=== PATIENT | male | born 2000 | race Caucasian/White ===

== ENCOUNTER 2020-08-08 18:47 | Emergency (ER) | payer OTHER ==
[~2020-08-08] VITALS: Wt 67.1 kg
[2020-08-08 20:38] LABS: BILIRUBIN Negative (Negative); BLOOD Negative (Negative); CLARITY Clear (Clear); COLOR Yellow (Yellow); GLUCOSE Negative (Negative); KETONE Negative (Negative); LEUKO ESTERASE Trace (Negative); NITRITE Negative (Negative); PH 5.5 (4.5-8.0); SPECIFIC GRAVITY 1.015 (1.001-1.030); UROBILINOGEN 0.2 E.U./dl (0.0-1.0)
[2020-08-08 21:21] LABS: EPITHELIAL CELLS 0-2; RBC 0-2 rbc/hpf (0-2); WBC 16-20 wbc/hpf (0-5)
[2020-08-08] MEDS ORDERED: DOXYCYCLINE100 M3 PO (21:32)
== END 2020-08-08 21:39 | disposition home or self-care (01) ==
LOC: ED 18:47
PROVIDERS: Nurse Practitioner
DX: Z20.2 Contact with and (suspected) exposure to infections with a predominantly sexual mode of transmission (principal)

== ENCOUNTER → 2020-11-21 | Outpatient (CLI) | payer OTHER ==
[~2020-11-21] MED LIST: DOXYCYCLINE100 M3 PO
== END | disposition home or self-care (01) ==
LOC: COVID19 17:24
PROVIDERS: ATTEND Internal Medicine
DX: U07.1 COVID-19 (principal)